=== PATIENT | female | born 1975 | race Caucasian/White ===

== ENCOUNTER 2018-07-05 05:06 | Emergency (ER) | payer OTHER, SELFPAY ==
[2018-07-05] MEDS ORDERED: Ondansetron HCl/PF 4 MG/2 ML Vial ONE (05:17)
[2018-07-05] MEDS ORDERED: Promethazine HCl 25 MG/ML VIAL ONE (06:28)
[2018-07-05] MEDS ORDERED: Ketorolac Tromethamine 30 MG/ML VIAL ONE (06:28)
[2018-07-05] MEDS ORDERED: Fentanyl 100 MCG/2 ML VIAL ONE (08:59)
[2018-07-05] MEDS ORDERED: Bisacodyl 10 MG SUPP ONE (10:01)
[2018-07-05 10:37] LABS: Bilirubin Negative (Negative); Blood, Urine Negative (Negative); Clarity CLEAR (Clear); Glucose, Urine (Dipstick) Negative (Negative); Leukocyte Negative (Negative); Nitrite Negative (Negative); Protein, Urine (Dipstick) Negative (Neg-Trace); Specific Gravity, Urine 1.017 (1.002-1.036); Urobilinogen 0.2 mg/dL (0.2-1.0)
[2018-07-05 11:31] LABS: ALT (SGPT) 7 U/L (8-55); AST (SGOT) 26 U/L (5-34); Albumin 3.9 g/dL (3.5-5.0); Alkaline Phosphatase 57 U/L (40-150); Anion Gap 11 mmol/L (10-20); BUN (Urea Nitrogen) 9 mg/dL (7.0-18.7); Bilirubin, Total 0.5 mg/dL (0.2-1.2); Calc. Creatinine Clearance 0 mL/min (70-130); Calcium 8.6 mg/dL (7.8-10.44); Carbon Dioxide 16 mmol/L (22-29); Chloride 113 mmol/L (98-107); Estimated GFR-MDRD 90; Glucose 91 mg/dL (70-105); Lipase 20 U/L (8-78); Potassium 3.9 mmol/L (3.5-5.1); Protein, Total 6.9 g/dL (6.0-8.3); Sodium 136 mmol/L (136-145)
[2018-07-05 11:57] LABS: Hemoglobin 12.6 g/dL (12.0-16.0); White Blood Cell (WBC) Count 6.4 thou/uL (4.8-10.8)
[2018-07-05 11:58] LABS: #Eosinphils 0.2 thou/uL (0.0-0.7); #Lymphocytes 2.1 thou/uL (1.20-3.40); #Monocytes 0.4 thou/uL (0.11-0.59); #Neutrophils 3.7 thou/uL (1.40-6.50); %Basophils 0.5 % (0.0-1.0); %Eosinophils 2.9 % (0.0-10.0); %Lymphocytes 32.4 % (21.0-51.0); %Monocytes 6.3 % (0.0-10.0); Mean Corpuscular HGB CONC 34.3 g/dL (32.0-36.0); Mean Corpuscular Hemoglobin 30.7 pg (27.0-31.0); Mean Corpuscular Volume 89.4 fL (78.0-98.0); Mean Platelet Volume 7.4 fL (7.4-10.4); Platelet Count 217 thou/uL (130-400); RBC Distribution Width 14.4 % (11.5-14.5)
--- NOTE | 2018-07-05 11:58 | ULT ---
PELVIC SONOGRAM: HISTORY: Left pelvic pain. TECHNIQUE: Transabdominal and transvaginal imaging with duplex evaluation. FINDINGS: The urinary bladder is decompressed. The uterus is retroverted with a homogeneous echotexture. It m easures 8 cm. The endometrium is 0.9 cm. There is a physiologic amount of free fluid within the cul -de-sac. The right ovary is 3.3 cm with follicles and good color and spectral Doppler flow. The left ovary measures up to 4.2 cm with a cyst measuring up to 3.4 cm. Good color and spectral Dop pler flow. IMPRESSION: 1. Left ovarian cyst, 3.4 cm. 2. Retroverted uterus. Findings were called to Dr. Arroyo in the emergency department at 0912 hours. CODE CR POS: [id number]
--- NOTE | 2018-07-05 12:01 | RAD ---
ACUTE ABDOMINAL SERIES: 07/05/2018 PROVIDED CLINICAL HISTORY: Abdominal pain. COMPARISON: None. FINDINGS: The cardiac and mediastinal silhouette are within normal limits. The lungs appear clear. No pleural fluid or pneumothorax apparent. No evidence for pneumoperitoneum. The abdominal bowel gas pattern is nonspecific. Conspicuous colonic fecal retention suggests constipation. Cholecystectomy clips, r ight upper quadrant. Surgical clips overlying the right and left hemipelvis. The osseous structures demonstrate no acute findings. No radiographically apparent urinary tract julianne culi. IMPRESSION: No evidence for an acute process. POS: [id number]
[2018-07-05 13:22] LABS: Pregnancy Test - Urine (BHCG) Negative (Negative); Pregu Control Background? CLEAR/WHITE (CLR/WHITE); Pregu Control Bar Appear? YES (CONTROL BAR); Specific Gravity 1.017 (1.002-1.036)
== END 2018-07-05 14:01 | disposition home or self-care (01) ==
LOC: ERS 05:06
DX: K59.00 Constipation, unspecified (principal); E03.9 Hypothyroidism, unspecified; F17.210 Nicotine dependence, cigarettes, uncomplicated; Z71.6 Tobacco abuse counseling; Z79.899 Other long term (current) drug therapy
CPT/HCPCS: 74022; 76856; 80053; 81003; 81025; 83690; 85025; 96361; 96374; 96375; 99406; J1885; J2405; J2550; J3010